=== PATIENT | male | born 1970 | race Caucasian/White ===

== ENCOUNTER 2018-10-09 16:30 | Observation (INO) ==
[2018-10-09 16:58] LABS: Basophils # 0.1 10*3/uL (0.0-0.2); Basophils % 0.8 % (0.0-0.8); Eosinophils # 0.2 10*3/uL (0.0-0.87); Eosinophils % 3.2 % (0.00-10.9); Hematocrit 45.7 VOL% (42.0-52.0); Immature Granulocytes % 0.4 %; Immature Granulocytes Absolute 0.03 #; Lymphocytes # 2.4 10*3/uL (1.4-4.0); Lymphocytes % 32.4 % (21.2-54.2); Mean Corpuscular HGB Conc 32.8 GM/DL (32-36); Mean Corpuscular Volume 88.4 FL (87-102); Mean Platelet Volume 10.7 FL (9.6-12.0); Monocytes % 10.7 % (1.7-12.7); Neutrophils % 52.5 % (38.7-73.9); Platelet Count 196 T/CUMM (130-400); Red Blood Count 5.17 MC/CUMM (3.8-5.5); Red Cell Distribution Width 14.3 % (9.3-17.3); White Blood Count 7.5 T/CUMM (4-12)
[2018-10-09 17:18] LABS: Albumin 3.7 G/DL (3.4-5.0); Bilirubin,Total 0.6 MG/DL (0.2-1.0); Calcium 9.4 MG/DL (8.5-10.1); Osmolality,Calculated 284.4 MOS/KG (273-304); Total Protein 7.1 G/DL (6.4-8.3)
[2018-10-09] MEDS ORDERED: SODIUM CHLORIDE 0.9% 500 ML IV STA (17:37)
[2018-10-09] MEDS ORDERED: ONDANSETRON 4 MG/2 ML VIAL IV PRN (18:42)
[2018-10-09 18:56] LABS: Apearance,Urine CLEAR (Clear); Bilirubin,Urine Negative (Negative); Blood, Urine Negative (Negative); Glucose,Urine (UA) >=500 mg/dL (Negative); Ketones,Urine 5 mg/dL (Negative); Mucus,Urine Occasional /LPF (Occasional); Nitrite,Urine Negative (Negative); Protein,Urine Negative; RBC,Urine 3 /HPF (0-4); Urine Color Straw (Yellow); Urine Specific Gravity 1.037 (1.001-1.035); Urine Urobilinogen < 2.0 EU/DL (0.2-1.0); WBC,Urine <1 /HPF (0-6)
[2018-10-09 19:14] LABS: Barbiturates Screen,Urine Negative (Negative); Benzodiazepines Screen,Urine Negative (Negative); Cannabinoid Screen,Urine Negative (Negative); Opiate Screen,Urine Negative (Negative); Phencyclidine Screen,Urine Negative (Negative)
[2018-10-09] MEDS ORDERED: DEXTROSE 50% 25 GM/50 ML VIAL IV PRN (21:09)
[2018-10-09] MEDS ORDERED: GLUCAGON 1 MG VIAL IM PRN (21:09)
[2018-10-09] MEDS: AMITRIPTYLINE 25 MG TABLET PO SCH (22:00)
[2018-10-09] MEDS: SIMVASTATIN 20 MG TABLET PO SCH (22:00)
[2018-10-09] MEDS: GABAPENTIN 300 MG CAPSULE PO SCH (22:00)
[2018-10-09] MEDS: ENOXAPARIN 40 MG/0.4 ML SYRINGE SUBCUT SCH (22:01)
[2018-10-09] MEDS: INSULIN REGULAR 100 UNIT/ML SUBCUT SCH (22:08)
[2018-10-10] MEDS ORDERED: traZODone 50 MG TABLET PO PRN (00:01)
[2018-10-10 02:40] LABS: Albumin 3.5 G/DL (3.4-5.0); Bilirubin,Total 0.8 MG/DL (0.2-1.0); Calcium 8.8 MG/DL (8.5-10.1); Risk Ratio 2.23; Thyroid Stimulating Hormone 1.43 uIU/ml (0.358-3.74); Total Protein 6.2 G/DL (6.4-8.3)
[2018-10-10] MEDS: ACETAMINOPHEN 325 MG TABLET PO PRN ×2 (05:00→16:36)
[2018-10-10] MEDS: INSULIN REGULAR 100 UNIT/ML SUBCUT SCH ×4 (09:05→21:24)
[2018-10-10] MEDS: PANTOPRAZOLE 40 MG TABLET PO SCH (12:39)
[2018-10-10] MEDS: GABAPENTIN 300 MG CAPSULE PO SCH ×3 (12:39→21:24)
[2018-10-10] MEDS ORDERED: SERTRALINE 25 MG TABLET PO SCH (21:00)
[2018-10-10] MEDS: AMITRIPTYLINE 25 MG TABLET PO SCH (21:24)
[2018-10-10] MEDS: ACETAMINOPHEN 325 MG TABLET PO SCH (21:24)
[2018-10-10] MEDS: SIMVASTATIN 20 MG TABLET PO SCH (21:24)
[2018-10-10] MEDS: ENOXAPARIN 40 MG/0.4 ML SYRINGE SUBCUT SCH (21:25)
[2018-10-11] MEDS: INSULIN REGULAR 100 UNIT/ML SUBCUT SCH ×3 (08:28→15:37)
[2018-10-11] MEDS: GABAPENTIN 300 MG CAPSULE PO SCH ×2 (08:28→12:36)
[2018-10-11] MEDS: PANTOPRAZOLE 40 MG TABLET PO SCH (08:28)
[2018-10-11] MEDS: ACETAMINOPHEN 325 MG TABLET PO SCH (08:28)
[2018-10-11 15:47] VITALS: BP 132/77
[2018-10-12] MEDS ORDERED: ASPIRIN EC 81 MG TABLET PO SCH (09:00)
[2018-10-15] MEDS ORDERED: ANASTROZOLE 1 MG TABLET PO SCH (09:00)
== END 2018-10-11 16:11 | disposition home or self-care (01) ==
LOC: N.ED 16:30 → N.EDINP 16:30 → SUATTDRO 18:42 → N.2E 20:36
PROVIDERS: ADMIT Internal Medicine; ATTEND Internal Medicine Nephrology